=== PATIENT | male | born 1985 | race Caucasian/White ===

== ENCOUNTER 2017-06-21 08:07 | Emergency (ER) | payer OTHER ==
[2017-06-21] MEDS: ONDANSETRON 4 MG ORAL DISINTEGRATING TAB (S0181) PO (09:14)
== END 2017-06-21 09:46 | disposition home or self-care (01) ==
LOC: M ED 08:07
DX: S46.002A Unspecified injury of muscle(s) and tendon(s) of the rotator cuff of left shoulder, initial encounter (principal); V86.92XA Unspecified occupant of snowmobile injured in nontraffic accident, initial encounter; Y92.89 Other specified places as the place of occurrence of the external cause; M54.9 Dorsalgia, unspecified; G89.29 Other chronic pain; Z88.0 Allergy status to penicillin; Z88.1 Allergy status to other antibiotic agents; Z88.2 Allergy status to sulfonamides; Z88.8 Allergy status to other drugs, medicaments and biological substances; Z98.890 Other specified postprocedural states
CPT/HCPCS: 73030

== ENCOUNTER → 2017-07-11 | Outpatient (CLI) | payer MEDICAID | LOC: M OUTALCOH 11:18 | DX: Z13.9 Encounter for screening, unspecified (principal); F12.10 Cannabis abuse, uncomplicated ==

== ENCOUNTER 2017-07-31 15:57 | Outpatient (RCR) | payer MEDICAID | END 2017-08-20 | LOC: M OUTALCOH 15:57 | DX: F12.20 Cannabis dependence, uncomplicated (principal); Z72.0 Tobacco use ==

== ENCOUNTER → 2018-09-17 | Outpatient (CLI) | payer OTHER ==
[~2018-09-17] MED LIST: IBUP-1022 PO; NAPR-837 PO; OXYC1TAB23 PO; PROT1TAB2 PO
--- NOTE | 2018-09-17 11:12 | REP ---
Right hand series: Two views. History: Pain. Findings: AP and lateral views of the right hand demonstrate normal overall mineralization. Bones, joints, and soft tissues are radiographically unremarkable. Impression: Negative radiographs of the right hand. Electronically Signed by Anders Case MD 09/17/2018 11:04 A
== END ==
LOC: M WUC 09:28
PROVIDERS: ATTEND Surgery
DX: M79.642 Pain in left hand (principal)

== ENCOUNTER 2021-01-27 12:16 | Emergency (ER) | payer OTHER ==
[~2021-01-27] VITALS: Ht 193 cm; Wt 80.9 kg
[2021-01-27] MEDS ORDERED: SUBO8MIS SL (12:25)
[2021-01-27 13:46] VITALS: BP 143/89
== END 2021-01-27 13:30 | disposition home or self-care (01) ==
LOC: M ED 12:16
DX: J06.9 Acute upper respiratory infection, unspecified (principal); Z79.899 Other long term (current) drug therapy; Z88.0 Allergy status to penicillin; Z88.1 Allergy status to other antibiotic agents; Z88.2 Allergy status to sulfonamides; Z88.8 Allergy status to other drugs, medicaments and biological substances